=== PATIENT | female | born 1955 | race Caucasian/White ===

== ENCOUNTER 2017-04-08 10:37 | Outpatient (CLI) | payer BC ==
--- NOTE | 2017-04-08 11:19 | MMO ---
DIAGNOSTIC MAMMOGRAM OF RIGHT BREAST: Date: 04/08/17 COMPARISON: 09/30/16, 09/08/16, 09/02/16, and 09/02/15. HISTORY: Six month follow-up, benign biopsy of right breast abnormality performed in September 2016. FINDINGS: This patient's mammogram was interpreted with the assistance of computer-aided detection. There is a stable post biopsy clip seen centrally within the right breast, middle depth. No new mass or architectural distortion. No concerning microcalcifications. IMPRESSION: BIRADS 3: Probably Benign Finding - Short-Interval Follow-Up Suggested Bilateral diagnostic mammography is advised in 6 months. The facility will notify the patient of the need for additional imaging services. POS: FAM
== END 2017-04-08 10:38 | disposition home or self-care (01) ==
LOC: MAMMO 10:37
PROVIDERS: ATTEND Internal Medicine Medical Oncology
DX: C50.312 Malignant neoplasm of lower-inner quadrant of left female breast (principal)
CPT/HCPCS: G0206-RT

== ENCOUNTER 2018-02-18 08:05 | Outpatient (CLI) | payer BC | END 2018-02-18 08:06 | disposition home or self-care (01) | LOC: BICMAMMO 08:05 | PROVIDERS: ATTEND Internal Medicine Medical Oncology | DX: Z08 Encounter for follow-up examination after completed treatment for malignant neoplasm (principal); Z85.3 Personal history of malignant neoplasm of breast | CPT/HCPCS: 77066; G0279 ==

== ENCOUNTER 2019-04-28 09:05 | Outpatient (CLI) | payer BC ==
--- NOTE | 2019-04-28 11:35 | MMO ---
Stacy 3D Screen W CAD, Bilateral MAMMO Bilat Screen [facility]. CLINICAL HISTORY: Patient is 63 years old and is seen for screening. The patient has the following family history of breast cancer: cousin female, malignant (generic). The patient has a history of malignant (generic) in the left breast in 2008. The patient has a history of right Stereotatic Biopsy in 2016 - benign, left Ultrasound Guided Core Biopsy in 2008 - malignant and left Lumpectomy in 2008 - malignant. VIEWS: The views performed were: bilateral craniocaudal with tomosynthesis and bilateral mediolateral oblique with tomosynthesis. FILMS COMPARED: The present examination has been compared to prior imaging studies performed at [facility] on 09/08/2016, 09/30/2016, 04/08/2017 and 02/18/2018. This study has been interpreted with the assistance of computer-aided detection. Standard digital mammography was supplemented by the acquisition of digital breast tomosynthesis. MAMMOGRAM FINDINGS: There are scattered fibroglandular densities. Finding 1: There are stable benign appearing calcifications with associated post operative change seen in the left breast. Finding 2: There is a stable biopsy clip seen in the right breast. There are no suspicious masses, suspicious calcifications, or new areas of architectural distortion. IMPRESSION: THERE IS NO MAMMOGRAPHIC EVIDENCE OF MALIGNANCY. A ROUTINE FOLLOW-UP MAMMOGRAM IN 1 YEAR IS RECOMMENDED. ACR BI-RADS Category 2 - Benign finding MAMMOGRAPHY NOTE: 1. A negative mammogram report should not delay a biopsy if a dominant of clinically suspicious mass is present. 2. Approximately 10% to 15% of breast cancers are not detected by mammography. 3. Adenosis and dense breasts may obscure an underlying neoplasm. Reported by: ELO BAE MD Electonically Signed: [id number]
== END 2019-04-28 09:06 | disposition home or self-care (01) ==
LOC: BICMAMMO 09:05
PROVIDERS: ATTEND Internal Medicine Medical Oncology
DX: Z12.31 Encounter for screening mammogram for malignant neoplasm of breast (principal); Z85.3 Personal history of malignant neoplasm of breast; Z91.89 Other specified personal risk factors, not elsewhere classified; Z80.3 Family history of malignant neoplasm of breast; Z98.890 Other specified postprocedural states
CPT/HCPCS: 77063; 77067

== ENCOUNTER 2020-05-15 09:34 | Outpatient (CLI) | payer BC ==
--- NOTE | 2020-05-15 11:12 | MMO ---
Bilateral MAMMO Bilat Screen [facility]. CLINICAL HISTORY: Patient is 64 years old and is seen for screening. The patient has the following family history of breast cancer: cousin female, malignant (generic). The patient has a history of malignant (generic) in the left breast in 2008. The patient has a history of right Stereotatic Biopsy in 2016 - benign, left Ultrasound Guided Core Biopsy in 2008 - malignant and left Lumpectomy in 2008 - malignant. VIEWS: The views performed were: right mediolateral oblique. FILMS COMPARED: The present examination has been compared to prior imaging studies performed at [facility] on 09/30/2016, 04/08/2017, 02/18/2018 and 04/28/2019. This study has been interpreted with the assistance of computer-aided detection. MAMMOGRAM FINDINGS: There are scattered fibroglandular densities. Finding 1: There are stable benign appearing calcifications seen in both breasts. Finding 2: There is a stable biopsy clip seen in the right breast. Finding 3: There is a stable post-surgical scar seen in the left breast. There are no suspicious masses, suspicious calcifications, or new areas of architectural distortion. IMPRESSION: THERE IS NO MAMMOGRAPHIC EVIDENCE OF MALIGNANCY. A ROUTINE FOLLOW-UP MAMMOGRAM IN 1 YEAR IS RECOMMENDED. THE RESULTS OF THIS EXAM WERE SENT TO THE PATIENT. ACR BI-RADS Category 2 - Benign finding MAMMOGRAPHY NOTE: 1. A negative mammogram report should not delay a biopsy if a dominant of clinically suspicious mass is present. 2. Approximately 10% to 15% of breast cancers are not detected by mammography. 3. Adenosis and dense breasts may obscure an underlying neoplasm. Reported by: RAMIN BUCKNER MD Electonically Signed: [id number]
== END 2020-05-15 09:35 | disposition home or self-care (01) ==
LOC: BICMAMMO 09:34
PROVIDERS: ATTEND Internal Medicine Medical Oncology
DX: Z12.31 Encounter for screening mammogram for malignant neoplasm of breast (principal); Z80.3 Family history of malignant neoplasm of breast; Z85.3 Personal history of malignant neoplasm of breast; Z91.89 Other specified personal risk factors, not elsewhere classified; Z98.890 Other specified postprocedural states
CPT/HCPCS: 77063; 77067

== ENCOUNTER 2020-12-26 08:48 | Outpatient (CLI) | payer BC | END 2020-12-26 08:49 | disposition home or self-care (01) | LOC: BICMAMMO 08:48 | PROVIDERS: ATTEND Internal Medicine Medical Oncology | DX: Z13.820 Encounter for screening for osteoporosis (principal); N95.8 Other specified menopausal and perimenopausal disorders; C50.312 Malignant neoplasm of lower-inner quadrant of left female breast | CPT/HCPCS: 77080 ==

== ENCOUNTER 2021-09-19 08:09 | Outpatient (CLI) | payer MEDICARE, BC | END 2021-09-19 08:10 | disposition home or self-care (01) | LOC: BICMAMMO 08:09 | PROVIDERS: ATTEND Family Medicine | DX: Z12.31 Encounter for screening mammogram for malignant neoplasm of breast (principal); Z98.890 Other specified postprocedural states; Z85.3 Personal history of malignant neoplasm of breast; Z80.3 Family history of malignant neoplasm of breast | CPT/HCPCS: 77063; 77067 ==

== ENCOUNTER 2022-09-21 07:51 | Outpatient (CLI) | payer MEDICARE, BC | END 2022-09-21 07:52 | disposition home or self-care (01) | LOC: BICMAMMO 07:51 | PROVIDERS: ATTEND Family Medicine | DX: Z12.31 Encounter for screening mammogram for malignant neoplasm of breast (principal) | CPT/HCPCS: 77063; 77067 ==

== ENCOUNTER 2023-12-07 14:14 | Outpatient (CLI) | payer MEDICARE | END 2023-12-07 14:15 | disposition home or self-care (01) | LOC: BICMAMMO 14:14 | PROVIDERS: ATTEND Family Medicine | DX: Z12.31 Encounter for screening mammogram for malignant neoplasm of breast (principal); Z13.820 Encounter for screening for osteoporosis; E28.39 Other primary ovarian failure; Z78.0 Asymptomatic menopausal state; Z80.3 Family history of malignant neoplasm of breast; Z85.3 Personal history of malignant neoplasm of breast; Z91.89 Other specified personal risk factors, not elsewhere classified; Z98.890 Other specified postprocedural states | CPT/HCPCS: 77063; 77067; 77080 ==